=== PATIENT | male | born 1970 | race Caucasian/White ===

== ENCOUNTER 2022-09-26 17:36 | Emergency (ER) | payer OTHER ==
[2022-09-26] MEDS ORDERED: Acetaminophen 500 MG TAB ONE (18:04)
[2022-09-26 18:22] LABS: #Basophils 0.1 thou/uL (0.0-0.2); #Eosinphils 0.2 thou/uL (0.0-0.7); #Lymphocytes 2.4 thou/uL (1.20-3.40); #Monocytes 0.6 thou/uL (0.11-0.59); %Basophils 0.9 % (0.0-1.0); %Eosinophils 2.5 % (0.0-10.0); %Lymphocytes 25.9 % (21.0-51.0); %Monocytes 6.2 % (0.0-10.0); %Neutrophils 64.6 % (42.0-75.0); Hemoglobin 16.1 g/dL (14.0-18.0); Mean Corpuscular HGB CONC 33.1 g/dL (32.0-36.0); Mean Corpuscular Volume 87.8 fl (78.0-98.0); Mean Platelet Volume 6.9 fL (7.4-10.4); Platelet Count 283 10x3/uL (130-400); RBC Distribution Width 12.7 % (11.5-14.5); Red Blood Cell (RBC) Count 5.53 mill/uL (4.70-6.10); White Blood Cell (WBC) Count 9.2 10x3/uL (4.8-10.8)
[2022-09-26 18:35] LABS: ALT (SGPT) 53 U/L (8-55); AST (SGOT) 38 U/L (5-34); Albumin 4.6 g/dL (3.5-5.0); Alkaline Phosphatase 105 U/L (40-110); Anion Gap 17 mmol/L (10-20); BUN (Urea Nitrogen) 16 mg/dL (8.4-25.7); Bilirubin, Total 0.9 mg/dL (0.2-1.2); Calc. Creatinine Clearance 0 mL/min (70-130); Calcium 9.2 mg/dL (7.8-10.44); Carbon Dioxide 21 mmol/L (22-29); Chloride 105 mmol/L (98-107); Estimated GFR 81; Glucose 97 mg/dL (70-105); Potassium 3.8 mmol/L (3.5-5.1); Protein, Total 7.6 g/dL (6.0-8.3); Sodium 139 mmol/L (136-145)
== END 2022-09-26 19:40 | disposition home or self-care (01) ==
LOC: NAV ERS 17:36
DX: S16.1XXA Strain of muscle, fascia and tendon at neck level, initial encounter (principal); S39.012A Strain of muscle, fascia and tendon of lower back, initial encounter; E27.8 Other specified disorders of adrenal gland; C34.11 Malignant neoplasm of upper lobe, right bronchus or lung; I10 Essential (primary) hypertension; V89.2XXA Person injured in unspecified motor-vehicle accident, traffic, initial encounter; Z79.899 Other long term (current) drug therapy
CPT/HCPCS: 36415; 70450; 71260; 72125; 74177; 80053; 84484; 85025; 93005